=== PATIENT | male | born 1960 | race Caucasian/White ===

== ENCOUNTER 2023-07-14 00:57 | Emergency (ER) | payer OTHER | END 2023-07-14 02:16 | disposition home or self-care (01) | LOC: FB.ED 00:57 | DX: S01.81XA Laceration without foreign body of other part of head, initial encounter (principal); F10.120 Alcohol abuse with intoxication, uncomplicated; W01.0XXA Fall on same level from slipping, tripping and stumbling without subsequent striking against object, initial encounter | CPT/HCPCS: 12011; 70450; 99283 ==